=== PATIENT | female | born 1970 | race Two or more races ===

== ENCOUNTER 2019-02-07 14:51 | Inpatient (IN) | payer OTHER ==
[~2019-02-07] VITALS: Ht 172.7 cm; Wt 83.0 kg
[2019-02-08] MEDS ORDERED: ZESTORETIC 10-1 EACH PO (09:54)
[2019-02-08] MEDS ORDERED: SYNTHROID50 MCG PO (09:54)
[2019-02-08] MEDS ORDERED: SIMVASTATIN5 MG PO (09:54)
== END 2019-02-16 12:51 | disposition home or self-care (01) | DRG 620 ==
LOC: SURH 02-15 07:30 → O/R 02-15 13:16 → SURH 02-15 14:03
PROVIDERS: ADMIT Plastic Surgery
PROC: 0W0F0ZZ Alteration of Abdominal Wall, Open Approach (ICD-10-PCS; principal; 2019-02-15 07:30)
PROC: 0H0V0ZZ Alteration of Bilateral Breast, Open Approach (ICD-10-PCS; 2019-02-15 07:30)
DX: E65 Localized adiposity (principal); K43.6 Other and unspecified ventral hernia with obstruction, without gangrene; R63.4 Abnormal weight loss; N62 Hypertrophy of breast; I10 Essential (primary) hypertension; E03.8 Other specified hypothyroidism

== ENCOUNTER 2020-01-31 06:35 | Day surgery (SDC) | payer OTHER ==
[~2020-01-31 06:35] MED LIST: MULTI VITAMIN1 EACH PO; SIMVASTATIN5 MG PO; SYNTHROID50 MCG PO; ZESTORETIC 10-1 EACH PO
== END 2020-01-31 17:45 | disposition home or self-care (01) ==
LOC: CIR.AMB 06:35
PROVIDERS: ATTEND Orthopaedic Surgery Sports Medicine
DX: M75.111 Incomplete rotator cuff tear or rupture of right shoulder, not specified as traumatic (principal); M75.21 Bicipital tendinitis, right shoulder; M75.41 Impingement syndrome of right shoulder; M75.31 Calcific tendinitis of right shoulder; Z20.828 Contact with and (suspected) exposure to other viral communicable diseases
CPT/HCPCS: 29827; 23406; 29819; 29823; 29824; 29826; C1776